=== PATIENT | female | born 1950 | race Caucasian/White ===

== ENCOUNTER 2023-06-22 11:52 | Emergency (ER) | payer MEDICARE, SELFPAY ==
[2023-06-22 11:54] VITALS: BP 130/69; PULSE 79; RESP 18; TEMP 36.7; O2SAT 98
[2023-06-22 12:04] LABS: Glucose Point of Care 125 mg/dl (65-105)
--- NOTE | 2023-06-22 12:39 | ED.WEAKNESS ---
HPI - Weakness General Chief complaint: Weakness Stated complaint: Weakness Time Seen by Provider: 06/22/23 12:37 Source: patient and family Mode of arrival: ambulatory Limitations: no limitations History of Present Illness HPI Narrative: 73 years old white female came to the emergency room because feeling tired and weak. Patient had donated 1 unit of blood this morning then went to [employer] game and state started feeling bad. She stated got sweaty and dizzy. She states she did not eat breakfast prior to giving blood and had 2 cookies after. On arrival to the ED feeling much better and currently is asymptomatic. Patient reports that she was bleeding quite a bed out of IV access required a compression dressing. Related Data Allergies Allergy/AdvReac Type Severity Reaction Status Date / Time Sulfa (Sulfonamide AdvReac Gastrointestinal Verified 06/22/23 12:00 Antibiotics) Upset Review of Systems Review of Systems: All systems reviewed & are unremarkable except as noted in HPI and below Exam Narrative: General appearance: Well-developed, well-nourished Skin: Normal color Head: Normocephalic, nontraumatic Eyes: Clear conjunctiva ENT: Oropharynx normal, ears normal, nose normal Neck: Supple, nontender Chest and respiratory: Airway patent, no respiratory distress, no accessory muscle use Heart: Regular rate/rhythm Abdomen: Soft, nontender, no organomegaly, quiet bowel sounds Vascular: Normal peripheral pulses, normal capillary refill. Musculoskeletal: Normal range of motion, nontender back Neurologic: Alert and oriented ?3, THERAPY SITE COORDINATOR is normal as tested, no gross motor deficit Course Vital Signs Vital signs: Vital Signs Temperature 36.7 C 06/22/23 11:54 Pulse Rate 79 06/22/23 11:54 Respiratory Rate 18 06/22/23 11:54 Blood Pressure 130/69 06/22/23 11:54 Pulse Oximetry 98 06/22/23 11:54 Oxygen Delivery Room Air 06/22/23 11:54 Temperature 36.7 C 06/22/23 11:54 Pulse Rate 70 06/22/23 13:06 Respiratory Rate 18 06/22/23 11:54 Blood Pressure 104/66 06/22/23 13:06 Pulse Oximetry 98 06/22/23 11:54 Oxygen Delivery Room Air 06/22/23 11:54 MDM - Weakness MDM Narrative Medical decision making narrative: Differential diagnosis after do meeting blood is orthostatic hypotension, not eating breakfast before donation, not enough food after donation, Patient also did not drink plenty of fluid to replenish the volume loss during donation. Patient went out doors doing physical activities which is prohibited for the next 48 hours after donation. Blood workup today showed no acute or significant abnormalities. Patient received 1 L of normal saline IV feeling much better and ready to go home. Differential Diagnosis Differential diagnosis: Likely other (As above) Lab Data 06/22/23 12:57 06/22/23 12:57 Labs: Lab Results 06/22/23 06/22/23 Range/Units 12:02 12:57 WBC 12.0 H (4.5-10.0) K/mm3 RBC 4.79 (4.2-5.4) M/mm3 Hgb 14.4 (12.0-15.0) g/dL Hct 43.2 (37.0-47.0) % MCV 90.2 (80-100) fl MCH 30.1 (26-34) pg MCHC 33.3 (32-36) g/dl RDW 15.5 H (11.5-14.5) % Plt Count 262 (150-375) k/mm3 MPV 11.4 H (7.4-10.4) fl Immature Gran % (Auto) 0.5 (0-0.5) % Neut % (Auto) 78.8 H (45.5-73.1) % Lymph % (Auto) 10.8 L (18.3-44.2) % [place] % (Auto) 6.9 (2.6-8.5) % Eos % (Auto) 2.2 (0-4.4) % Baso % (Auto) 0.8 (0.2-1.2) % Lymph # (Auto) 1.30 (0.9-3.2) K/mm3 [place] # (Auto) 0.8 H (0.1-0.6) K/mm3 Eos # (Auto) 0.3 (0-0.3) K/mm3 Baso # (Auto) 0.1 (0.0-0.1) K/mm3 Abs Immat Gran (auto) 0.06 H (0.00-0.031) K/mm3 Absol
--- NOTE | 2023-06-22 12:41 | ECG_ITS ---
SEE SCANNED COPY FOR CONFIRMED REPORT MTDD
[2023-06-22] MEDS: SODIUM CHLORIDE 0.9% IV 1,000 ML 999 ML IV CONT (13:00)
[2023-06-22 13:04] LABS: Basophils Absolute Auto 0.1 K/mm3 (0.0-0.1); Basophils Percent Auto 0.8 % (0.2-1.2); Eosinophils Absolute Auto 0.3 K/mm3 (0-0.3); Eosinophils Percent Auto 2.2 % (0-4.4); Hematocrit 43.2 % (37.0-47.0); Hemoglobin 14.4 g/dL (12.0-15.0); Immature Granulocyte Absolute 0.06 K/mm3 (0.00-0.031); Immature Granulocyte Percent A 0.5 % (0-0.5); Lymphocytes Percent Auto 10.8 % (18.3-44.2); Mean Corpuscular HGB Conc 33.3 g/dl (32-36); Mean Corpuscular Hemoglobin 30.1 pg (26-34); Mean Corpuscular Volume 90.2 fl (80-100); Mean Platelet Volume 11.4 fl (7.4-10.4); Monocytes Absolute Auto 0.8 K/mm3 (0.1-0.6); Monocytes Percent Auto 6.9 % (2.6-8.5); Neutrophils Absolute Auto 9.5 K/mm3 (1.3-6.7); Neutrophils Percent Auto 78.8 % (45.5-73.1); Platelet Count Result 262 k/mm3 (150-375); Red Blood Count 4.79 M/mm3 (4.2-5.4); Red Cell Distribution Width 15.5 % (11.5-14.5)
[2023-06-22 13:05] VITALS: BP 104/62; BP 113/59; PULSE 66
[2023-06-22 13:06] VITALS: BP 104/66; PULSE 70
[2023-06-22 13:19] LABS: Alanine Aminotransferase 24 U/L (6-35); Albumin Level 4.4 g/dL (3.5-5.1); Alkaline Phosphatase 86 U/L (38-126); Anion Gap 9 mmol/L (4-12); Aspartate Amino Transferase 41 U/L (14-36); Bilirubin,Total 0.5 mg/dL (0.2-1.3); Blood Urea Nitrogen 19 mg/dL (7-17); Calcium 9.3 mg/dL (8.4-10.2); Carbon Dioxide 22 mmol/L (22-30); Chloride 108 mmol/L (98-107); Estimated Glomerular Filt Rate > 60; Glucose 118 mg/dL (65-110); Potassium 3.7 mmol/L (3.4-5.0); Sodium 139 mmol/L (137-145)
[2023-06-22 14:35] VITALS: BP 110/68; PULSE 72; RESP 16; O2SAT 97
== END 2023-06-22 14:35 | disposition home or self-care (01) ==
PROVIDERS: Emergency Provider Emergency Medicine; PCP Orthopaedic Surgery Orthopaedic Trauma
DX: R53.1 Weakness (principal); R94.31 Abnormal electrocardiogram [ECG] [EKG]
CPT/HCPCS: 36415; 80053; 82948; 85025; 93005; 96360; 99283; J7030